=== PATIENT | female | born 1990 | race Two or more races ===

== ENCOUNTER 2017-06-17 10:03 | Emergency (ER) | payer BC ==
--- NOTE | 2017-06-17 10:36 | Emergency Department Record ---
History of Present Illness - General Chief Complaint: Abdominal Pain Stated Complaint: ABD PAIN Time Seen by Provider: 06/17/17 10:33 Source: Patient, RN notes reviewed Mode of Arrival: Ambulatory - History of Present Illness Initial Comments: sore throat yesterday and fever today and bilateral abdominal pain which started this AM upper and more on the right side . Vomited times one last night and no diarrhea and no dysuria and she thinks she has a yeast infection. 3 weeks ago on antibiotics for toothache infection and was on amoxil.- Onset/Timin -: Days(s) Location: R Flank, RLQ Radiation: R flank Severity: Moderate Quality: Cramping, Sharp Consistency: Constant Improves With: Nothing Worsens With: Movement Associated Symptoms: Nausea - Related Data LMP Date: 06/02/17 Patient : No Home Medications Medication Instructions Recorded Confirmed Last Taken Alprazolam [Alprazolam] 1 mg PO ASDIR 06/17/17 06/17/17 Unknown Escitalopram Oxalate [Lexapro] 10 mg PO DAILY 06/17/17 06/17/17 Unknown Previous Rx's Medication Instructions Recorded Cephalexin [Keflex] 500 mg PO QID #40 cap 06/17/17 Ciprofloxacin HCl [Cipro] 500 mg PO Q12HR #20 tablet 06/17/17 Fluconazole [Diflucan] 150 mg PO ONCE #1 tab 06/17/17 Allergies Allergy/AdvReac Type Severity Reaction Status Date / Time No Known Drug Allergies Allergy Verified 06/17/17 10:28 Travel Screening - Travel/Exposure Within Last 30 Days Have you traveled within the last 30 days?: No Review of Systems Reviewed: No additional complaints except as noted below Constitutional: Reports: As per HPI. Denies: Chills, Fever, Malaise, Night sweats, Weakness, Weight change Eyes: Reports: As per HPI. Denies: Eye discharge, Eye pain, Photophobia, Vision change ENT: Reports: As per HPI, Throat pain. Denies: Congestion, Dental pain, Ear pain, Epistaxis, Hearing loss Respiratory: Reports: As per HPI, Cough. Denies: Dyspnea, Hemoptysis, Stridor, Wheezes Cardiovascular: Reports: As per HPI. Denies: Arrhythmia, Chest pain, Dyspnea on exertion, Edema, Murmurs, Orthopnea, Palpitations, Paroxysmal nocturnal dyspnea, Rheumatic Fever, Syncope Endocrine: Reports: As per HPI. Denies: Fatigue, Heat or cold intolerance, Polydipsia, Polyuria Gastrointestinal: Reports: As per HPI, Abdominal pain, Vomiting. Denies: Constipation, Diarrhea, Hematemesis, Hematochezia, Melena, Nausea Genitourinary: Reports: As per HPI. Denies: Abnormal menses, Discharge, Dyspareunia, Dysuria, Frequency, Hematuria, Incontinence, Retention, Urgency Musculoskeletal: Reports: As per HPI. Denies: Arthralgia, Back pain, Gout, Joint swelling, Myalgia, Neck pain Skin: Reports: As per HPI. Denies: Bruising, Change in color, Change in hair/ nails, Lesions, Pruritus, Rash Neurological: Reports: As per HPI. Denies: Abnormal gait, Confusion, Headache, Numbness, Paresthesias, Seizure, Tingling, Tremors, Vertigo, Weakness Psychiatric: Reports: As per HPI. Denies: Anxiety, Auditory hallucinations, Depression, Homicidal thoughts, Suicidal thoughts, Visual hallucinations Hematological/Lymphatic: Reports: As per HPI. Denies: Anemia, Blood Clots, Easy bleeding, Easy bruising, Swollen glands Past Medical History - SOCIAL HISTORY Smoking Status: Current every day smoker Alcohol Use: Occasional Drug Use: None - RESPIRATORY Hx Respiratory Disorders: No - CARDIOVASCULAR Hx Cardio Disorders: No - NEURO Hx Neuro Disorders: No - GI Hx GI Disorders: Yes Comment:: h pylori - Hx Genitourinary Disorders: Yes Hx UTI: Yes - ENDOCRINE Hx Endocrine Disorders: No - MUSCULOSKELETAL Hx Musculoskeletal Disorders: No - PSYCH Hx Psych Problems: Yes Hx Anxiety: Yes Hx Depression: Yes - HEMATOLOGY/ONCOLOGY Hx Hematology/Oncology Disorders: No Family Medical History Any Significant Family History?: Yes Hx Cancer: Mother Hx Heart Disease: Grandparents Physical Exam - General General Appearance: Alert, Oriented x3, Cooperative, Mild distress - Head Head exam: Normal inspection - Eye Eye exam: Normal appearance, PERRL Pupils: Normal accommodation - ENT ENT exam: Normal exam, Mucous membranes moist, Normal external ear exam, Normal orophraynx, TM's normal bilaterally Ear exam: Normal external inspection. negative: External canal tenderness Nasal Exam: Normal inspection. negative: Discharge, Sinus tenderness Mouth exam: Normal external inspection, Tongue normal Teeth exam: Normal inspection. negative: Dental caries Throat exam: Normal inspection. negative: Tonsillar erythema, Tonsillar exudate - Neck Neck exam: Normal inspection, Full ROM. negative: Tenderness - Respiratory Respiratory exam: Normal lung sounds bilaterally. negative: Respiratory distress - Cardiovascular Cardiovascular Exam: Regular rate, Normal rhythm, Normal heart sounds - GI/Abdominal GI/Abdominal exam: Soft, Normal bowel sounds, Distended, Tenderness (right upper quad pain). negative: Guarding, Rebound, Rigid - Rectal Rectal exam: Deferred - exam: Deferred - Extremities Extremities exam: Normal inspection, Full ROM, Normal capillary refill. negative: Tenderness - Back Back exam: Reports: Normal inspection, Full ROM, Tenderness (lower right back pain SI joint area). Denies: Muscle spasm, Rash noted - Neurological Neurological exam: Alert, Normal gait, Oriented X3, Reflexes normal - Psychiatric Psychiatric exam: Normal affect, Normal mood - Skin Skin exam: Dry, Intact, Normal color, Warm Course Vital Signs 06/17/17 10:23 Temperature 100.1 F H Pulse Rate 75 Respiratory 18 Rate Blood Pressure 113/79 Pulse Ox 99 Medical Decision Making - Lab Data Result diagrams: 06/17/17 11:25 06/17/17 11:25 Disposition Clinical Impression: Strep throat UTI (urinary tract infection) Qualifiers: Urinary tract infection type: acute cystitis Hematuria presence: without hematuria Qualified Code(s): N30.00 - Acute cystitis without hematuria Disposition: Home, Self-Care Condition: (1) Good Instructions: Strep Throat (ED), Urinary Tract Infection in Women (ED) Additional Instructions: follow up with family in 2 days Prescriptions: Ciprofloxacin HCl [Cipro] 500 mg PO Q12HR #20 tablet Cephalexin [Keflex] 500 mg PO QID #40 cap Fluconazole [Diflucan] 150 mg PO ONCE #1 tab Forms: Patient Portal Access Time of Disposition: 12:32 Quality - Quality Measures Quality Measures: N/A - Blood Pressure Screening Does Patient Have Any of the Following: No Blood Pressure Classification: Normal BP Reading Systolic Measurement: 113 Diastolic Measurement: 79 Screening for High Blood Pressure: < Normal BP, F/U Not Required > [G8783]
[2017-06-17] MEDS: MAGNESIUM HYDROXIDE/AL HYDROX 30 ML, LIDOCAINE VISC 2% 200 MG PO ONE ×2 (11:26)
[2017-06-17 11:30] LABS: URINE APPEARANCE CLOUDY; URINE BILIRUBIN NEGATIVE (NEGATIVE); URINE BLOOD MODERATE (NEGATIVE); URINE COLOR YELLOW; URINE GLUCOSE (UA) NEGATIVE (NEGATIVE); URINE KETONE NEGATIVE (NEGATIVE); URINE LEUKOCYTE ESTERASE MODERATE (NEGATIVE); URINE NITRITE POSITIVE (NEGATIVE); URINE UROBILINOGEN 0.2 E.U./dL (0.20 - 1.00)
[2017-06-17] MEDS: 0.9 % SODIUM CHLORIDE 1,000 ML BAG IV ONE (11:30)
[2017-06-17 11:33] LABS: BASO % 0.3 % (0-6); EOS % 0.5 % (0-6); GRAN % 79.2 % (47-80); HEMATOCRIT 35.7 % (35.0-47.0); HEMOGLOBIN 11.8 gm/dl (11.6-16.0); LYMPH % 13.3 % (16-45); MEAN CELL VOLUME 86.4 fl (81-97); MEAN CORPUSCULAR HEMOGLOBIN 28.6 pg (27-33); MEAN CORPUSCULAR HGB CONC 33.1 g/dl (32-36); MEAN PLATELET VOLUME 11.5 fl (7.4-10.4); MONO % 6.7 % (0-9); PLATELET COUNT 123 K/uL (130-400); RED BLOOD COUNT 4.13 M/uL (3.80-5.40); RED CELL DISTRIBUTION WIDTH 13.1 % (11.5-14.5)
[2017-06-17 11:36] LABS: HCG,QUALITATIVE URINE NEGATIVE (NEGATIVE); URINE BACTERIA 4+; URINE EPITHELIAL CELLS 0 - 2 (FEW)
[2017-06-17 11:46] LABS: ALBUMIN 3.8 gm/dL (3.5-5.0); ALKALINE PHOSPHATASE 64 U/L (38-126); ALT/SGPT 32 U/L (9-52); ANION GAP 6.8 (7-16); AST/SGOT 22 U/L (14-36); BILIRUBIN,TOTAL 0.84 mg/dL (0.2-1.3); BLOOD UREA NITROGEN 6 mg/dL (7-17); CARBON DIOXIDE 20.2 mmol/L (22-30); CREATININE 0.7 mg/dL (0.52-1.04); EST GLOMERULAR FILTRATION RATE > 60 ml/min; GLUCOSE,RANDOM 93 mg/dL (70-110); LIPASE 26 U/L (23-300); TOTAL PROTEIN 6.6 gm/dL (6.3-8.2)
[2017-06-17] MEDS: ACETAMINOPHEN 325 MG TAB PO ONE (11:46)
== END 2017-06-17 12:54 | disposition home or self-care (01) ==
LOC: ER 10:03
DX: N30.00 Acute cystitis without hematuria (principal); J02.0 Streptococcal pharyngitis; R11.0 Nausea
CPT/HCPCS: 80048; 80076; 81001; 81025; 83690; 85025; 87880; 99284; J7030

== ENCOUNTER 2019-02-11 15:03 | Emergency (ER) | payer SELFPAY ==
--- NOTE | 2019-02-11 15:32 | Emergency Department Record ---
History of Present Illness - General Chief complaint: complication Stated complaint: ABD PAINS, PREG 12 WEEKS Time Seen by Provider: 02/11/19 15:30 Source: Patient, RN notes reviewed Mode of Arrival: Ambulatory - History of Present Illness Initial comments: vaginal spotting post sex and 12 weeks and the sex was last night and she had abdominal pain for about a week and she had a normal US about 2 weeks ago. Onset/Timin -: Week(s) Location: Abdomen, Pelvis Radiation: None Severity scale (1-10): 7 Quality: Aching Consistency: Constant, Intermittent Improves with: None Worsens with: None Associated symptoms: Abdominal pain Vaginal bleeding: Light Pre- care: Followed by OB - Related Data : 2 Para: 1 Ab: 0 Home Medications Medication Instructions Recorded Confirmed Last Taken Vit37/Iron/Folic Acid 1 each PO DAILY 02/11/19 02/11/19 Unknown [Prenata Chewable Tablet] Allergies Allergy/AdvReac Type Severity Reaction Status Date / Time No Known Drug Allergies Allergy Verified 06/17/17 10:28 Past Medical History - SOCIAL HISTORY Smoking Status: Current every day smoker - [employer] History : 2 Para: 1 A: 0 - RESPIRATORY Hx Respiratory Disorders: No - CARDIOVASCULAR Hx Cardio Disorders: No - NEURO Hx Neuro Disorders: No - GI Hx GI Disorders: Yes Comment:: h pylori - Hx Genitourinary Disorders: Yes Hx UTI: Yes - ENDOCRINE Hx Endocrine Disorders: No - MUSCULOSKELETAL Hx Musculoskeletal Disorders: No - PSYCH Hx Psych Problems: Yes Hx Anxiety: Yes Hx Depression: Yes - HEMATOLOGY/ONCOLOGY Hx Hematology/Oncology Disorders: No Family Medical History Any Significant Family History?: Yes Hx Cancer: Mother Hx Heart Disease: Grandparents Physical Exam - General General Appearance: Alert, Oriented x3, Cooperative, No acute distress - Head Head exam: Normal inspection - Eye Eye exam: Normal appearance, PERRL Pupils: Normal accommodation - ENT ENT exam: Normal exam, Mucous membranes moist, Normal external ear exam, Normal orophraynx, TM's normal bilaterally Ear exam: Normal external inspection. negative: External canal tenderness Nasal Exam: Normal inspection. negative: Discharge, Sinus tenderness Mouth exam: Normal external inspection, Tongue normal Teeth exam: Normal inspection. negative: Dental caries Throat exam: Normal inspection. negative: Tonsillar erythema, Tonsillar exudate - Neck Neck exam: Normal inspection, Full ROM. negative: Tenderness - Respiratory Respiratory exam: Normal lung sounds bilaterally. negative: Respiratory distress - Cardiovascular Cardiovascular Exam: Regular rate, Normal rhythm, Normal heart sounds - GI/Abdominal GI/Abdominal exam: Soft, Normal bowel sounds, Tenderness - Rectal Rectal exam: Deferred - exam: Deferred - Extremities Extremities exam: Normal inspection, Full ROM, Normal capillary refill. negative: Tenderness - Back Back exam: Reports: Normal inspection, Full ROM. Denies: Muscle spasm, Rash noted, Tenderness - Neurological Neurological exam: Alert, Normal gait, Oriented X3, Reflexes normal - Psychiatric Psychiatric exam: Normal affect, Normal mood - Skin Skin exam: Dry, Intact, Normal color, Warm Course Vital Signs 02/11/19 15:12 Temperature 98.4 F Pulse Rate 82 Respiratory 18 Rate Blood Pressure 117/78 Pulse Ox 98 Medical Decision Making - Data Complexity MDM Data: Labs Ordered and/or Reviewed (UA negative and wet prep negative and wbc 7,900 ), X-Ray Ordered and/or Reviewed (US 12 weeksa and heart tones good, read by me) - Lab Data Result diagrams: 02/11/19 15:50 02/11/19 15:50 Disposition Clinical Impression: Vaginal bleeding Abdominal pain Qualifiers: Abdominal location: lower abdomen, unspecified Qualified Code(s): R10.30 - Lower abdominal pain, unspecified Qualifiers: Weeks of gestation: 12 weeks Qualified Code(s): Z3A.12 - 12 weeks gestation of Disposition: Home, Self-Care Condition: (1) Good Instructions: Threatened Miscarriage (ED) Additional Instructions: follow up with OB Dr in one week Forms: Patient Portal Access Time of Disposition: 17:24 Quality - Quality Measures Quality Measures: N/A - Blood Pressure Screening Does Patient Have Any of the Following: No Blood Pressure Classification: Normal BP Reading Systolic Measurement: 117 Diastolic Measurement: 78 Screening for High Blood Pressure: < Normal BP, F/U Not Required > [G8783]
[2019-02-11] MEDS ORDERED: 0.9 % SODIUM CHLORIDE 1000ML 1,000 ML IV SCH (16:00)
[2019-02-11 16:01] LABS: BASO % 0.3 % (0-6); EOS % 2.1 % (0-6); GRAN % 61.8 % (47-80); HEMATOCRIT 36.1 % (35.0-47.0); HEMOGLOBIN 11.8 gm/dl (11.6-16.0); LYMPH % 30.4 % (16-45); MEAN CELL VOLUME 85.1 fl (81-97); MEAN CORPUSCULAR HEMOGLOBIN 27.8 pg (27-33); MEAN CORPUSCULAR HGB CONC 32.7 g/dl (32-36); MEAN PLATELET VOLUME 10.6 fl (7.4-10.4); MONO % 5.4 % (0-9); PLATELET COUNT 169 K/uL (130-400); RED BLOOD COUNT 4.24 M/uL (3.80-5.40); RED CELL DISTRIBUTION WIDTH 12.9 % (11.5-14.5); URINE APPEARANCE CLEAR; URINE BILIRUBIN NEGATIVE (NEGATIVE); URINE BLOOD NEGATIVE (NEGATIVE); URINE COLOR YELLOW; URINE GLUCOSE (UA) NEGATIVE (NEGATIVE); URINE KETONE NEGATIVE (NEGATIVE); URINE LEUKOCYTE ESTERASE NEGATIVE (NEGATIVE); URINE NITRITE NEGATIVE (NEGATIVE); URINE PROTEIN NEGATIVE (NEGATIVE); URINE UROBILINOGEN 0.2 E.U./dL (0.20 - 1.00); WHITE BLOOD COUNT W/O DIFF 7.9 K/uL (4.2-12.2)
[2019-02-11 16:15] LABS: BLOOD UREA NITROGEN 7 mg/dL (6-20); CREATININE 0.4 mg/dL (0.5-0.9); EST GLOMERULAR FILTRATION RATE > 60 mL/min
[2019-02-11 16:18] LABS: GLUCOSE,RANDOM 82 mg/dL (74-109)
[2019-02-12 21:20] LABS: GC SPECIMEN TYPE Vaginal
--- NOTE | 2019-02-13 11:22 | ULTRASOUND REPORT ---
DATE: 02/11/2019. EXAM: ULTRASOUND EXAMINATION OF THE PELVIS. HISTORY: VAGINAL BLEEDING POST INTERCOURSE. TECHNIQUE: Realtime Grayscale ultrasound examination of the pelvis is performed. COMPARISON: No comparison studies are available. FINDINGS: The uterus measures 10.7 cm x 10.0 cm x 8.0 cm. Within the uterus there is a single live intrauterine . Estimated gestational age for the fetus is approximately 12 weeks and 4 days. Estimated date of delivery is 08/22/2019. heart rate is 161 beats per minute. The right ovary measures 4.8 cm x 3.7 cm x 2.6 cm. The left ovary measures 2.9 cm x 2.0 cm x 2.1 cm. The right ovary contains a dominant follicle measuring 2.3 cm x 2.4 cm x 1.8 cm. This finding may represent a corpus luteal cyst. Several Nabothian cysts are identified within the cervix. Several prominent vessels are identified within the bilateral adnexal region. This finding may represent pelvic congestion syndrome. Clinical correlation is recommended. IMPRESSION: 1. SINGLE LIVE INTRAUTERINE IS NOTED WITHOUT EVIDENCE OF ABNORMALITY. FOLLOW-UP ULTRASOUND EXAMINATION OF THE PELVIS IS RECOMMENDED BETWEEN 18 AND 20 WEEKS OF GESTATION FOR A FULL ANATOMIC SURVEY. 2. PROMINENT VESSELS ARE IDENTIFIED WITHIN THE BILATERAL ADNEXAL REGIONS SUGGESTING PELVIC CONGESTION. CLINICAL CORRELATION IS RECOMMENDED. Job Number: [id number] MTDD
== END 2019-02-11 18:18 | disposition home or self-care (01) ==
LOC: ER 15:03
DX: O20.9 Hemorrhage in early pregnancy, unspecified (principal); O99.331 Smoking (tobacco) complicating pregnancy, first trimester; R10.30 Lower abdominal pain, unspecified; F17.210 Nicotine dependence, cigarettes, uncomplicated; Z3A.12 12 weeks gestation of pregnancy
CPT/HCPCS: 99284 ×2; 85025; 84702; 80048; 81003; 76817; 76801; Q0111; 87210; J7030